=== PATIENT | female | born 1980 | race Caucasian/White ===

== ENCOUNTER 2017-02-21 14:55 | Emergency (ER) | payer OTHER ==
[2017-02-21 15:13] VITALS: BP 115/80
[2017-02-21] MEDS ORDERED: methylPREDNISolone Sodium Succinate 125 MG/2 ML SDV IM ONE (15:30)
[2017-02-21] MEDS ORDERED: diphenhydrAMINE 25 MG Cap PO ONE (15:32)
--- NOTE | 2017-02-21 15:38 | EDM.PDOC ---
ED HPI GENERAL MEDICAL PROBLEM - General Chief Complaint: Allergic Reaction Stated Complaint: EYE SWELLING Time Seen by Provider: 02/21/17 15:15 Source of Information: Reports: Patient, Family History Limitations: Reports: No Limitations - History of Present Illness INITIAL COMMENTS - FREE TEXT/NARRATIVE: pt arrived with swelling in the eye lids. She has hd a reaction to salami and she had some last nite and after that did no wash hr hands and rubbed her eye lids. She developed swelling and marked itching in the eye lids. Onset: Today, Sudden Duration: Hour(s): Location: Reports: Face Associated Symptoms: Reports: Other ( pt had no other itching other than the eye lids and no rash. ) - Related Data Allergies Allergy/AdvReac Type Severity Reaction Status Date / Time No Known Allergies Allergy Verified 05/10/15 10:25 Home Meds: Home Meds Citalopram Hydrobromide [Celexa] 20 mg PO DAILY 04/03/15 [History] Levothyroxine Sodium [Synthroid] 125 mcg PO DAILY 04/03/15 [History] Past Medical History HEENT History: Reports: Allergic Rhinitis, Impaired Vision Respiratory History: Reports: Pneumonia, Recurrent Neurological History: Reports: Migraines Psychiatric History: Reports: Depression Endocrine/Metabolic History: Reports: Hypothyroidism Dermatologic History: Reports: Cellulitis - Past Surgical History Head Surgeries/Procedures: Reports: None Female Surgical History: Reports: Breast Implant Endocrine Surgical History: Reports: None Neurological Surgical History: Reports: None Musculoskeletal Surgical History: Reports: None, Other (See Below) Dermatological Surgical History: Reports: Other (See Below) Social & Family History - Tobacco Use Smoking Status *Q: Never Smoker Used Tobacco, but Quit: Yes Month Tobacco Last Used: 06/2004 Second Hand Smoke Exposure: No - Recreational Drug Use Recreational Drug Use: No ED ROS ALLERGIC REACTION - Review of Systems Review Of Systems: See Below Constitutional: Reports: No Symptoms HEENT: Reports: Other (pt has swelling in the eye lids. ) Respiratory: Reports: No Symptoms Cardiovascular: Reports: No Symptoms Endocrine: Reports: No Symptoms GI/Abdominal: Reports: No Symptoms : Reports: No Symptoms Musculoskeletal: Reports: No Symptoms Skin: Reports: No Symptoms Neurological: Reports: No Symptoms ED EXAM GENERAL NO PERIP PULSE - Physical Exam Exam: See Below Text/Narrative:: pt has marked swelling in the upper eye lids. She did rub her eye lids with her eyes after handling salami which she is allergic to. 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 Exam Limited By: No Limitations General Appearance: Alert, Anxious, Other (Pt has marked swelling in the eye lids with edema present. ) Ears: Normal TMs Nose: Normal Inspection Throat/Mouth: Normal Inspection Head: Atraumatic Neck: Normal Inspection Respiratory/Chest: Other ( no wheezing present. ) Cardiovascular: Regular Rate, Rhythm GI/Abdominal: Soft, Non-Tender (Female) Exam: Deferred Rectal (Female) Exam: Deferred Back Exam: Normal Inspection Extremities: Normal Inspection Neurological: Alert, Oriented, Normal Cognition Course - Vital Signs Last Recorded V/S: Last Vital Signs Temp 36.5 C 02/21/17 15:21 Pulse 88 02/21/17 15:21 Resp 16 02/21/17 15:21 BP 115/80 02/21/17 15:21 Pulse Ox 98 02/21/17 15:21 - Orders/Labs/Meds Meds: Medications Discontinued Medications Generic Name Dose Route Start Last Admin Trade Name Freq PRN Reason Stop Dose Admin Diphenhydramine HCl 50 mg 02/21/17 15:32 02/21/17 15:40 Benadryl PO 02/21/17 15:33 50 mg ONETIME ONE Administration Methylprednisolone Sodium Succinate 125 mg 02/21/17 15:30 02/21/17 15:38 Solu-Medrol IM 02/21/17 15:31 125 mg ONETIME ONE Administration - Re-Assessments/Exams Free Text/Narrative Re-Assessment/Exam: 02/21/17 15:50 pt was given solumedrol 125 im, benadryl 50mg q6h, . Departure - Departure Time of Disposition: 15:38 Disposition: Home, Self-Care 01 Condition: Fair Clinical Impression: Allergic reaction - Discharge Information Referrals: Sanjay Momin MD [Primary Care Provider] - Forms: ED Department Discharge Care Plan Goals: cool pack, benadryl 50mg q6h for next 24-36 hours, predisone 10mg 2 tabs daily for 4 days if persistent swelling tomorrow.
== END 2017-02-21 16:00 | disposition home or self-care (01) ==
LOC: JP.ED 14:55
DX: T78.49XA Other allergy, initial encounter (principal); R22.0 Localized swelling, mass and lump, head; Z79.899 Other long term (current) drug therapy
CPT/HCPCS: 96372; 99283; A9270; J2930